=== PATIENT | male | born 1930 | race Caucasian/White ===

== ENCOUNTER → 2016-09-13 | Outpatient (CLI) | payer OTHER ==
[~2016-09-13] VITALS: Ht 180.3 cm; Wt 80.9 kg
[~2016-09-13] MED LIST: ALDACTONE100 MG PO; AMOX TR-K CLV1 EAC4 PO; ASPIR-LOW81 MG PO; CIPRO500 MG PO; CONSTULOSE10 GM/15 M PO; CRESTOR40 MG PO; DIOVAN160 MG PO; DIOVAN320 MG PO; ELIQUIS5 MG PO; EYE DROPS RIGHT EYE; FLOMAX0.4 MG PO; FUROSEMIDE20 MG PO; FUROSEMIDE40 MG PO; HYDROCHLOROTHIA25 MG PO; LUPRON DEPOT7.5 MG IM; METOPROLOL SUCC50 MG PO; MIDODRINE HCL5 MG PO; MURO-128 5300 DROP/1 BOTH EYES; OXYCODONE HCL5 MG PO; POTASSIUM CHLO20 ME1 PO; PRED FORTE100 DROP/5 RIGHT EYE; PROAMATINE5 MG PO; TRAMADOL HCL50 MG PO; VALSARTAN80 MG PO; VITAMIN D31000 UNI2 PO
== END | disposition home or self-care (01) ==
LOC: AMB 09:57
DX: K22.70 Barrett's esophagus without dysplasia (principal); K29.90 Gastroduodenitis, unspecified, without bleeding; K44.9 Diaphragmatic hernia without obstruction or gangrene; N04.9 Nephrotic syndrome with unspecified morphologic changes; R18.8 Other ascites; R14.0 Abdominal distension (gaseous); I25.10 Atherosclerotic heart disease of native coronary artery without angina pectoris; Z95.0 Presence of cardiac pacemaker; I11.0 Hypertensive heart disease with heart failure; I50.9 Heart failure, unspecified; Z85.51 Personal history of malignant neoplasm of bladder; G47.33 Obstructive sleep apnea (adult) (pediatric); R73.09 Other abnormal glucose; Z94.7 Corneal transplant status; Z83.3 Family history of diabetes mellitus; Z87.891 Personal history of nicotine dependence; Z79.82 Long term (current) use of aspirin
CPT/HCPCS: 88305; 88342 TC; B4087

== ENCOUNTER 2016-12-22 16:50 | Emergency (ER) | payer OTHER ==
[~2016-12-22] VITALS: Ht 177.8 cm; Wt 92.8 kg
[2016-12-22 18:24] LABS: EOSINOPHIL (%) 0.2 % (0-5); HEMATOCRIT 30.3 % (38.0-50.0); IMMATURE GRANULOCYTE (%) 0.8 % (0.0-0.7); IMMATURE GRANULOCYTE COUNT 0.1 K/uL; INSTRUMENT ABS NEUTROPHIL CT 8.3 K/uL; LYMPHOCYTE COUNT 0.8 K/uL (1.0-2.8); MCH 24.8 PG (29.0-34.0); MEAN PLAT.VOLUME 10.2 uM^3 (9.0-12.4); MONOCYTE (%) 10.1 % (3-12); NEUTROPHIL (%) 80.9 % (45-76); NEUTROPHIL COUNT 8.3 K/uL (1.8-6.4); PLATELET COUNT 280 K/uL (156-360); RBC DIS.WIDTH-CV 18.6 % (11.8-14.6); RBC DIS.WIDTH-SD 50.5 % (39-53); RED BLOOD COUNT 4.03 M/uL (4.00-5.50); WHITE BLOOD COUNT 10.2 K/uL (4.1-10.2)
[2016-12-22 18:25] LABS: MCV 75.2 FL (86-99)
[2016-12-22 18:32] LABS: CHLORIDE 94 mEq/L (99-109); POTASSIUM 4.4 mEq/L (3.7-5.4); SODIUM 130 mEq/L (136-147)
[2016-12-22 18:34] LABS: GLUCOSE 127 mg/dL (70-99)
[2016-12-22 18:35] LABS: ANION GAP 13 MEQ/L (2-14)
[2016-12-22 18:38] LABS: GFR ESTIMATE (CALCULATED) 27 mL/min/; UREA NITROGEN (BUN) 57 mg/dL (9-23)
[2016-12-22 19:33] LABS: ADD MIUA? YES; BILIRUBIN NEGATIVE; BLOOD SMALL; COLOR YELLOW ((YELLOW)); GLUCOSE (STRIP) NEGATIVE; KETONES NEGATIVE; LEUKOCYTES NEGATIVE; NITRITE NEGATIVE; PROTEIN (STRIP) 100
[2016-12-22 19:39] LABS: BACTERIA RARE /HPF; EPITHELIAL CELLS NONE SEEN /HPF; HYALINE CASTS 0-5 /LPF; MUCUS TRACE /LPF; RED BLOOD CELLS 0-5 /HPF (0-5); UCUL ADDED? NO; WHITE BLOOD CELLS 0-5 /HPF (0-5)
[2016-12-22] MEDS ORDERED: LEVAQUIN500 MG PO (20:12)
[2016-12-22 20:36] VITALS: BP 132/78
== END 2016-12-22 20:37 | disposition home or self-care (01) ==
LOC: EME 16:50
PROVIDERS: Emergency Medicine
DX: R60.9 Edema, unspecified (principal); N28.9 Disorder of kidney and ureter, unspecified; C78.00 Secondary malignant neoplasm of unspecified lung; Z85.46 Personal history of malignant neoplasm of prostate; Z85.51 Personal history of malignant neoplasm of bladder; G89.29 Other chronic pain; E78.5 Hyperlipidemia, unspecified; I10 Essential (primary) hypertension
CPT/HCPCS: 71020; 71250; 80048 91; 81003; 83880; 85025; 93005; 93971; 99281; 99285